=== PATIENT | male | born 1965 | race Caucasian/White ===

== ENCOUNTER → 2016-11-29 | Outpatient (CLI) | payer BC | LOC: GMAL 11:12 | PROVIDERS: ATTEND Family Medicine | DX: Z00.00 Encounter for general adult medical examination without abnormal findings (principal) ==

== ENCOUNTER 2017-09-24 22:03 | Emergency (ER) | payer BC ==
--- NOTE | 2017-09-24 22:31 | ED.PDOC ---
History of Present Illness - General Chief Complaint: Laceration Stated Complaint: laceration to left 3rd toe from knife Time Seen by Provider: 09/24/17 22:30 Source: patient Exam Limitations: no limitations - History of Present Illness Initial Comments: Juan Hanks 52 y/o male stated that he dropped his knife on his left foot causing laceration on his left 3rd toe. Timing/Duration: just prior to arrival Location: feet - 3rd toe Improving Factors: nothing Worsening Factors: movement Associated Symptoms: denies symptoms Allergies/Adverse Reactions: Allergies NO KNOWN ALLERGY Allergy (Verified 09/24/17 22:16) Home Medications: Ambulatory Orders Belen D 09/24/17 Blood Pressure Med 09/24/17 Water Pills 09/24/17 Review of Systems - Review of Systems All other Systems: Reviewed and Negative, No Change from Baseline Past Medical History (General) - Patient Medical History Hx Seizures: No Hx Stroke: No Hx Dementia: No Hx Asthma: No Hx of COPD: No Hx Cardiac Disorders: No Hx Congestive Heart Failure: No Hx Pacemaker: No Hx Hypertension: Yes Hx Thyroid Disease: No Hx Diabetes: No Hx Gastroesophageal Reflux: No Hx Renal Disease: No Hx Cancer: No Hx of HIV: No Hx Hepatitis C: No Hx MRSA: No Surgical History: other - Vaccination History Hx Tetanus, Diphtheria Vaccination: No - 6 years ago Hx Influenza Vaccination: No - Social History Hx Tobacco Use: Yes Hx Chewing Tobacco Use: Yes Hx Alcohol Use: Yes Hx Substance Use: No Hx Substance Use Treatment: No Hx Depression: No Family Medical History - Family History Mother Family History: Unknown Living Status: Unknown Physical Exam - Physical Exam General Appearance: Alert, Comfortable, No apparent distress Eyes, Ears, Nose, Throat Exam: normal ENT inspection Neck: supple Cardiovascular/Chest: regular rate, rhythm, no murmur Respiratory: lungs clear Gastrointestinal/Abdominal: non tender, soft Back Exam: normal inspection Extremity: normal range of motion Neurologic: no motor/sensory deficits, oriented x 3 Skin Exam: warm/dry, normal color Skin Problem Location: lower extremities - left foot 3rd toe Skin Character: other - laceration Lymphatic: no adenopathy Progress - Progress Progress: 09/24/17 23:15 Last Vital Signs Temp 98.6 F 09/24/17 22:05 Pulse 83 09/24/17 22:05 Resp 18 09/24/17 22:05 BP 136/90 09/24/17 22:05 Pulse Ox 95 09/24/17 22:05 Procedures - Laceration/Wound Repair Left Toe Wound Length (cm): 1 - gaping bleeding Wound's Depth, Shape: linear Wound Explored: clean Irrigated w/ Saline (cc's): 30 Betadine Prep?: Yes Anesthesia: 1% Lidocaine Volume Anesthetic (cc's): 5 Wound Repaired With: sutures Suture Size/Type: 5:0, prolene Number of Sutures: 3 Layer Closure?: No Departure - Departure Clinical Impression: Laceration of toe Qualifiers: Encounter type: initial encounter Toe: lesser toe Damage to nail status: without damage Foreign body presence: without foreign body Laterality: left Qualified Code(s): S91.115A - Laceration without foreign body of left lesser toe (s) without damage to nail, initial encounter Disposition: Discharge to Home or Self Care Departure Forms: ED Discharge - Pt. Copy, Patient Portal Self Enrollment Instructions: DI for Laceration Repair, DI for Laceration Repair -- Simple, How to Care for a Laceration After Repair Referrals: Erasmo Senior III, MD [Primary Care Provider] - 1-2 Weeks Home Medications: Ambulatory Orders Belen D 09/24/17 Blood Pressure Med 09/24/17 Water Pills 09/24/17 Additional Instructions: REMOVAL OF SUTURES 10/04/2017 [facility]
[2017-09-24] MEDS ORDERED: LIDOCAINE 1% 10 ML VIAL INJ ONE (22:46)
[2017-09-24] MEDS ORDERED: NEOMYCIN-BACITRACIN-POLYMYXIN 0.9 GM UD TOP ONE (23:05)
[2017-09-24 23:34] VITALS: BP 131/87; TEMP 98.2; O2SAT 92
== END 2017-09-24 23:05 | disposition home or self-care (01) ==
LOC: ER 22:03
DX: S91.115A Laceration without foreign body of left lesser toe(s) without damage to nail, initial encounter (principal); I10 Essential (primary) hypertension; Z87.891 Personal history of nicotine dependence; W26.0XXA Contact with knife, initial encounter; Y92.9 Unspecified place or not applicable